=== PATIENT | male | born 1965 | race Caucasian/White ===

== ENCOUNTER 2021-05-25 08:45 | Emergency (ER) | payer OTHER ==
[~2021-05-25] VITALS: Ht 182.9 cm; Wt 108.9 kg
--- NOTE | 2021-05-25 08:54 | NUR ---
pt not in waiting room when called for triage.
--- NOTE | 2021-05-25 09:30 | NUR ---
PT WAS EVALUATED BY DR MILES. PT WAS D/C'd TO HOME. D/C INSTRUCTIONS GIVEN TO THE PT BY DR MILES.
[2021-05-25 09:33] VITALS: BP 141/77
== END 2021-05-25 09:34 | disposition home or self-care (01) ==
LOC: ER 08:45
DX: Z02.89 Encounter for other administrative examinations (principal); F17.210 Nicotine dependence, cigarettes, uncomplicated; E11.9 Type 2 diabetes mellitus without complications
CPT/HCPCS: A4663